=== PATIENT | female | born 1960 | race Native Hawaiian/Other Pacific Islander ===

== ENCOUNTER 2016-11-15 01:42 | Emergency (ER) | payer OTHER ==
[2016-11-15 01:42] VITALS: BMI 27.3
[2016-11-15 01:56] VITALS: BP 130/81; PULSE 89; RESP 18; O2SAT 100
[2016-11-15] MEDS ORDERED: DiphenhydrAMINE 50 mg/ml Inj IVP ONE (01:56)
--- NOTE | 2016-11-15 01:59 | ED PDOC ---
Arrival/HPI - General Chief Complaint: Allergic Reaction Time Seen by Provider: 11/15/16 01:47 Historian: Patient - History of Present Illness Narrative History of Present Illness (Text): 11/15/16 01:56 Jada Hollis is a 56 year old female who presents to the Emergency department complaining of an allergic reaction. Patient states she began experiencing a diffuse, pruritic rash after eating crabs at 22:00 yesterday. Patient denies any shortness of breath, wheezing, facial/throat swelling, nausea , vomiting, headache, dizziness, or any other complaints. Time/Duration: 4-6 hours (22:00) Symptom Onset: Gradual Symptom Course: Unchanged Activities at Onset: Light, Eating Context: Home Past Medical History - Provider Review Nursing Documentation Reviewed: Yes - Tetanus Immunization Tetanus Immunization: Unknown - Reproductive Menopause: Yes - Cardiac Hx Cardiac Disorders: No Hx Hypertension: Yes - Pulmonary Hx Respiratory Disorders: No Hx Tuberculosis: No - Neurological Hx Neurological Disorder: No HX Cerebrovascular Accident: No Hx Seizures: No - HEENT Hx HEENT Disorder: No - Renal Hx Renal Disorder: No - Endocrine/Metabolic Hx Hypothyroidism: Yes - Hematological/Oncological Hx Blood Disorders: No Hx Cancer: No - Integumentary Hx Dermatological Disorder: No - Musculoskeletal/Rheumatological Hx Musculoskeletal Disorders: No - Gastrointestinal Hx Gastrointestinal Disorders: No - Genitourinary/Gynecological Hx Genitourinary Disorders: No Hx Sexually Transmitted Diseases: No - Psychiatric Hx Psychophysiologic Disorder: No Hx Depression: No Hx Emotional Abuse: No Hx Physical Abuse: No Hx Substance Use: No - Surgical History Hx Section: Yes Hx Thyroidectomy: Yes - Suicidal Assessment Feels Threatened In Home Enviroment: No Family/Social History - Physician Review Nursing Documentation Reviewed: Yes Family/Social History: Unknown Family HX Smoking Status: Never Smoked Hx Alcohol Use: No Hx Substance Use: No Allergies/Home Meds Allergies/Adverse Reactions: Allergies No Known Allergies Allergy (Verified 11/15/16 01:54) Home Medications: Home Meds Medication Instructions Recorded Confirmed Levothyroxine [Synthroid] 75 mcg PO DAILY 11/15/16 11/15/16 Simvastatin [Zocor] 20 mg PO DAILY 11/15/16 11/15/16 amLODIPine [Norvasc] 5 mg PO DAILY 11/15/16 11/15/16 Review of Systems - Physician Review All systems were reviewed & negative as marked: Yes - Review of Systems Constitutional: Normal. absent: Fevers Eyes: Normal ENT: Normal Respiratory: Normal. absent: SOB, Cough Cardiovascular: Normal. absent: Chest Pain Gastrointestinal: Normal. absent: Abdominal Pain, Diarrhea, Nausea, Vomiting Genitourinary Female: Normal. absent: Dysuria, Frequency, Hematuria, Urine Output Changes Musculoskeletal: Normal. absent: Back Pain, Neck Pain Skin: Rash Neurological: Normal. absent: Headache, Dizziness Endocrine: Normal Hemo/Lymphatic: Normal Psychiatric: Normal Physical Exam Vital Signs Reviewed: Yes Vital Signs Temp Pulse Resp BP Pulse Ox 11/15/16 02:00 98.2 F 11/15/16 01:51 89 18 130/81 100 Temperature: Afebrile Blood Pressure: Normal Pulse: Regular Respiratory Rate: Normal Appearance: Positive for: Well-Appearing, Non-Toxic, Comfortable Pain Distress: None Mental Status: Positive for: Alert and Oriented X 3 - Systems Exam Head: Present: Atraumatic, Normocephalic Pupils: Present: PERRL Extroacular Muscles: Present: EOMI Conjunctiva: Present: Normal Mouth: Present: Moist Mucous Membranes Neck: Present: Normal Range of Motion Respiratory/Chest: Present: Clear to Auscultation, Good Air Exchange. No: Respiratory Distress, Accessory Muscle Use Cardiovascular: Present: Regular Rate and Rhythm, Normal S1, S2. No: Murmurs Abdomen: Present: Normal Bowel Sounds. No: Tenderness, Distention, Peritoneal Signs Back: Present: Normal Inspection Upper Extremity: Present: Normal Inspection. No: Cyanosis, Edema Lower Extremity: Present: Normal Inspection. No: Edema Neurological: Present: GCS=15, CN II-XII Intact, Speech Normal Skin: Present: Warm, Dry, Rashes (Diffuse urticaria), Normal Color Psychiatric: Present: Alert, Oriented x 3, Normal Insight, Normal Concentration Medical Decision Making ED Course and Treatment: 11/15/16 01:56 Impression: 56 year old female complaining of diffuse pruritic rash after eating crabs at 22:00. Differential Diagnosis included but are not limited to: allergic reaction vs. urticaria Plan: -- Benadryl -- Solu-medrol -- Reassess and disposition Progress Notes: 11/15/16 02:50 On reevaluation the patient feels better and is in no acute distress. I have discussed the results and plan with the patient, who expresses understanding. Patient given the opportunity to ask question, all questions were answered and there is agreement with the plan to discharge the patient home. Patient is stable for discharge. Patient was instructed to follow up with physician/clinic in 1-2 days or return if symptoms persist/worsen or new concerning symptoms arise. Re-evaluation Time: 02:50 Reassessment Condition: Re-examined, Improved - Medication Orders Current Medication Orders: Discontinued Medications Diphenhydramine HCl (Benadryl) 25 mg IVP ONCE ONE Stop: 11/15/16 01:57 Last Admin: 11/15/16 02:10 Dose: 25 mg Methylprednisolone (Solu-Medrol) 125 mg IVP ONCE ONE Stop: 11/15/16 01:57 Last Admin: 11/15/16 02:11 Dose: 125 mg - Scribe Statement The provider has reviewed the documentation as recorded by the Chris Bains Provider Scribe Attestation: All medical record entries made by the Olayinkaiborlando were at my direction and personally dictated by me. I have reviewed the chart and agree that the record accurately reflects my personal performance of the history, physical exam, medical decision making, and the department course for this patient. I have also personally directed, reviewed, and agree with the discharge instructions and disposition. Disposition/Present on Arrival - Present on Arrival Any Indicators Present on Arrival: No History of DVT/PE: No History of Uncontrolled Diabetes: No Urinary Catheter: No History of Decub. Ulcer: No History Surgical Site Infection Following: None - Disposition Have Diagnosis and Disposition been Completed?: Yes Diagnosis: Allergic reaction Disposition: HOME/ ROUTINE Disposition Time: 02:51 Condition: GOOD Discharge Instructions (ExitCare): Urticaria (ED) Prescriptions: predniSONE [predniSONE Tab] 20 mg PO TID #15 tab hydrOXYzine Pamoate [Vistaril] 25 mg PO QID #12 cap Forms: [employer] (E[place]ian)
[2016-11-15 02:12] VITALS: TEMP 98.2
== END 2016-11-15 03:04 | disposition home or self-care (01) ==
LOC: ED 01:42
DX: T78.40XA Allergy, unspecified, initial encounter (principal); X58.XXXA Exposure to other specified factors, initial encounter; Y92.009 Unspecified place in unspecified non-institutional (private) residence as the place of occurrence of the external cause
CPT/HCPCS: 96374; 96375; 99283; J1200; J2930